=== PATIENT | male | born 2005 | race African-American/Black ===

== ENCOUNTER 2025-01-24 16:10 | Emergency (ER) | payer OTHER ==
[~2025-01-24] VITALS: Ht 180.3 cm; Wt 73.0 kg
[2025-01-24 16:22] VITALS: TEMP 37.1; O2SAT 100
[2025-01-24] MEDS: ONDANSETRON 4MG ODT PO ONE (17:30)
[2025-01-24 17:34] VITALS: RESP 18
[2025-01-24] MEDS: IBUPROFEN 600MG TABLET PO ONE (17:34)
[2025-01-24] MEDS ORDERED: BENZ100C86 MT (17:42)
[2025-01-24] MEDS ORDERED: ONDA-239 PO (17:42)
[2025-01-24] MEDS ORDERED: IBUP-2029 MT (17:42)
[2025-01-24] MEDS ORDERED: BENZ1LOZ73 MT (17:42)
[2025-01-24 17:49] VITALS: BP 134/88; PULSE 88; O2SAT 100
== END 2025-01-24 18:05 | disposition home or self-care (01) ==
LOC: ER 16:10
DX: B34.9 Viral infection, unspecified (principal); Z20.822 Contact with and (suspected) exposure to COVID-19; Z79.899 Other long term (current) drug therapy
CPT/HCPCS: 99283; 87426; Q0162

== ENCOUNTER 2025-08-09 16:38 | Emergency (ER) | payer OTHER ==
[~2025-08-09] VITALS: Ht 182.9 cm; Wt 77.0 kg
[~2025-08-09 16:38] MED LIST: BENZ100C86 MT; BENZ1LOZ73 MT; IBUP-1455 MT; ONDA-239 PO
[2025-08-09 16:46] VITALS: O2SAT 99
[2025-08-09] MEDS ORDERED: DEXAMETHASONE 1 MG/ML ORAL SYR PO ONE (17:45)
[2025-08-09] MEDS: LOPERAMIDE HCL 2MG CAPSULE PO ONE (18:01)
[2025-08-09] MEDS: ONDANSETRON 4MG ODT PO ONE (18:01)
[2025-08-09] MEDS: DEXAMETHASONE 4MG TABLET PO SCH (18:01)
[2025-08-09] MEDS: KETOROLAC 15MG/ML VIAL IM ONE (18:02)
[2025-08-09] MEDS ORDERED: KETO10TA2 MT (19:23)
[2025-08-09] MEDS ORDERED: LOPE2CAP MT (19:23)
[2025-08-09] MEDS ORDERED: ONDA-239 PO (19:23)
[2025-08-09 19:24] LABS: INFLUENZA TYPE A Detected (Pres. Neg.)
[2025-08-09 19:25] LABS: INFLUENZA TYPE B Presumptive Negative (Pres. Neg.)
[2025-08-09 19:26] LABS: RESPIRATORY SYNCYTIAL VIRUS Not Detected (Not Detectd)
[2025-08-09] MEDS ORDERED: OSEL75CA17 MT (19:31)
[2025-08-09 19:44] VITALS: BP 122/79; PULSE 99; RESP 16; TEMP 37.3; O2SAT 100
== END 2025-08-09 19:48 | disposition home or self-care (01) ==
LOC: ER 16:38
DX: J10.1 Influenza due to other identified influenza virus with other respiratory manifestations (principal); Z79.899 Other long term (current) drug therapy; Z20.822 Contact with and (suspected) exposure to COVID-19
CPT/HCPCS: 99284; 71045; 87426; 87420; 87804 ×2; 96372; J1885; J8540; Q0162